=== PATIENT | male | born 1940 | race Caucasian/White ===

== ENCOUNTER 2017-03-14 14:04 | Day surgery (SDC) | payer OTHER ==
[~2017-03-14] VITALS: Ht 172.7 cm; Wt 73.0 kg
[~2017-03-14 14:04] MED LIST: ASPIR 8181 M1 PO; ASPIR-TRIN325 M1 PO; BENICAR20 MG PO; CRESTOR40 MG PO; DIOVAN160 MG PO; DIOVAN80 MG PO; ELIQUIS5 MG PO; HUMALOG100 UNIT/1 SQ; LANTUS (UNITS)1 UNIT SQ; LANTUS 3 M100 UNITS1 SC; LIPITOR80 MG PO; METOPROLOL SUCC25 MG PO; MULTIVITAMIN1 EAC1 PO; PRILOSEC40 MG PO; SENSIPAR30 MG PO; TEKTURNA150 MG PO; TRAVOPROST 0.02.5 ML BOTH EYES; ULTRAM50 MG PO; VITAMIN D31000 UNIT PO; ZEMPLAR1 MCG PO; ZETIA10 MG PO
[2017-03-14 14:48] LABS: POINT-OF-CARE METER ID UU13113696
[2017-03-14 15:56] LABS: POINT-OF-CARE METER ID UU13113819
== END 2017-03-14 16:48 | disposition home or self-care (01) ==
LOC: CATH 14:04
PROVIDERS: Internal Medicine Cardiovascular Disease
PROC: 0JH602Z Insertion of Monitoring Device into Chest Subcutaneous Tissue and Fascia, Open Approach (ICD-10-PCS; principal; 2017-03-14)
DX: I44.1 Atrioventricular block, second degree (principal); I45.3 Trifascicular block; I25.10 Atherosclerotic heart disease of native coronary artery without angina pectoris; E78.5 Hyperlipidemia, unspecified; I48.91 Unspecified atrial fibrillation; Z95.1 Presence of aortocoronary bypass graft; G47.30 Sleep apnea, unspecified; E11.22 Type 2 diabetes mellitus with diabetic chronic kidney disease; N18.2 Chronic kidney disease, stage 2 (mild); I12.9 Hypertensive chronic kidney disease with stage 1 through stage 4 chronic kidney disease, or unspecified chronic kidney disease; Z79.82 Long term (current) use of aspirin; Z79.01 Long term (current) use of anticoagulants; Z79.4 Long term (current) use of insulin; Z87.891 Personal history of nicotine dependence
CPT/HCPCS: 82948; C1764; C1894; J0690; J1200; J1815; J2250; J3010; S0020

== ENCOUNTER 2017-06-14 22:28 | Emergency (ER) | payer OTHER ==
[~2017-06-14] VITALS: Ht 172.7 cm; Wt 79.2 kg
[2017-06-14 22:54] LABS: POINT-OF-CARE METER ID UU14100415
[2017-06-14 23:26] LABS: EOSINOPHIL (%) 1.2 % (0-5); EOSINOPHIL COUNT 0.1 K/uL (0-0.3); HEMATOCRIT 40.2 % (38.0-50.0); IMMATURE GRANULOCYTE (%) 0.4 % (0.0-0.7); IMMATURE GRANULOCYTE COUNT 0.1 K/uL; INSTRUMENT ABS NEUTROPHIL CT 9.6 K/uL; LYMPHOCYTE COUNT 1.3 K/uL (1.0-2.8); MCH 29.3 PG (29.0-34.0); MCHC 32.8 G/DL (30.0-36.0); MCV 89.1 FL (86-99); MEAN PLAT.VOLUME 11.9 uM^3 (9.0-12.4); MONOCYTE (%) 5.6 % (3-12); MONOCYTE COUNT 0.7 K/uL (0-0.8); NEUTROPHIL (%) 81.6 % (45-76); NEUTROPHIL COUNT 9.6 K/uL (1.8-6.4); PLATELET COUNT 131 K/uL (156-360); RBC DIS.WIDTH-CV 12.1 % (11.8-14.6); RBC DIS.WIDTH-SD 39.6 % (39-53); RED BLOOD COUNT 4.51 M/uL (4.00-5.50); WHITE BLOOD COUNT 11.8 K/uL (4.1-10.2)
[2017-06-14 23:37] LABS: CHLORIDE 108 mEq/L (99-109); POTASSIUM 3.7 mEq/L (3.7-5.4); SODIUM 145 mEq/L (136-147)
[2017-06-14 23:38] LABS: GLUCOSE 101 mg/dL (70-99)
[2017-06-14 23:40] LABS: ANION GAP 11 MEQ/L (2-14)
[2017-06-14 23:40] LABS: POINT-OF-CARE METER ID UU14100415
[2017-06-14 23:41] LABS: SERUM ETHYL ALCOHOL < 10 mg/dL
[2017-06-14 23:42] LABS: GFR ESTIMATE (CALCULATED) > 59 mL/min/
[2017-06-14 23:43] LABS: UREA NITROGEN (BUN) 23 mg/dL (9-23)
[2017-06-14 23:46] LABS: TROP-I INTERPRETATION NEGATIVE; TROPONIN-I < 0.01 ng/mL (0.0-0.30)
[2017-06-15 01:29] LABS: POINT-OF-CARE METER ID UU14100415
[2017-06-15 01:54] VITALS: BP 130/65
== END 2017-06-15 02:15 | disposition home or self-care (01) ==
LOC: EME → EDBD 22:28 → EME 22:28
PROVIDERS: Emergency Medicine
DX: E11.649 Type 2 diabetes mellitus with hypoglycemia without coma (principal); Z79.4 Long term (current) use of insulin; I45.10 Unspecified right bundle-branch block; I10 Essential (primary) hypertension; E78.5 Hyperlipidemia, unspecified; I48.91 Unspecified atrial fibrillation; Z95.1 Presence of aortocoronary bypass graft; Z79.01 Long term (current) use of anticoagulants; Z79.82 Long term (current) use of aspirin; Z87.891 Personal history of nicotine dependence
CPT/HCPCS: 80048; 82948; 84484; 85025; 93005; 99281; 99285; G0480

== ENCOUNTER 2017-07-28 20:54 | Emergency (ER) | payer OTHER ==
[~2017-07-28] VITALS: Ht 172.7 cm; Wt 78.6 kg
[2017-07-28 21:38] LABS: EOSINOPHIL (%) 2.8 % (0-5); EOSINOPHIL COUNT 0.2 K/uL (0-0.3); HEMATOCRIT 39.1 % (38.0-50.0); IMMATURE GRANULOCYTE (%) 0.2 % (0.0-0.7); INSTRUMENT ABS NEUTROPHIL CT 3.3 K/uL; LYMPHOCYTE COUNT 1.8 K/uL (1.0-2.8); MCH 29.4 PG (29.0-34.0); MCHC 32.7 G/DL (30.0-36.0); MCV 89.7 FL (86-99); MONOCYTE (%) 7.7 % (3-12); MONOCYTE COUNT 0.4 K/uL (0-0.8); NEUTROPHIL (%) 57.1 % (45-76); NEUTROPHIL COUNT 3.3 K/uL (1.8-6.4); PLATELET COUNT 127 K/uL (156-360); RBC DIS.WIDTH-CV 12.1 % (11.8-14.6); RBC DIS.WIDTH-SD 39.6 % (39-53); RED BLOOD COUNT 4.36 M/uL (4.00-5.50); WHITE BLOOD COUNT 5.7 K/uL (4.1-10.2)
[2017-07-28 21:46] LABS: CARBON DIOXIDE (BICARBONATE) 27.9 MEQ/L (20-31); CHLORIDE 101 mEq/L (99-109); POTASSIUM 5.7 mEq/L (3.7-5.4); SODIUM 133 mEq/L (136-147)
[2017-07-28 21:49] LABS: ANION GAP 12 MEQ/L (2-14)
[2017-07-28 21:52] LABS: ALKALINE PHOSPHATASE 108 IU/L (3-129); GFR ESTIMATE (CALCULATED) 52 mL/min/; TOTAL BILIRUBIN 0.6 mg/dL (0.0-1.0)
[2017-07-28 21:53] LABS: DIRECT BILIRUBIN 0.3 mg/dL (0.0-0.3); UREA NITROGEN (BUN) 23 mg/dL (9-23)
[2017-07-28 21:55] LABS: LIPASE 16 U/L (1.0-51.0)
[2017-07-28 21:59] LABS: GLUCOSE 669 mg/dL (70-99)
[2017-07-28 22:33] LABS: ADD MIUA? YES; BILIRUBIN NEGATIVE; BLOOD NEGATIVE; GLUCOSE (STRIP) >=500; KETONES 5; LEUKOCYTES NEGATIVE; NITRITE NEGATIVE; PROTEIN (STRIP) NEGATIVE; SPECIFIC GRAVITY 1.024 (1.000-1.030); UROBILINOGEN 0.2 MG/DL (0.2-1.0)
[2017-07-28 22:35] LABS: BACTERIA NONE SEEN /HPF; EPITHELIAL CELLS NONE SEEN /HPF; MUCUS NONE SEEN /LPF; RED BLOOD CELLS 0-5 /HPF (0-5); UCUL ADDED? NO; WHITE BLOOD CELLS 0-5 /HPF (0-5)
[2017-07-28 22:37] LABS: COLOR YELLOW ((YELLOW))
[2017-07-28 23:34] LABS: POINT-OF-CARE METER ID UU13113747
[2017-07-28 23:36] LABS: AMPHETAMINE NEGATIVE (500 ng/mL); BARBITURATES NEGATIVE (200 ng/mL); BENZODIAZEPINES NEGATIVE (150 ng/mL); COCAINE NEGATIVE (150 ng/mL); INTERNAL CONTROLS VALID? YES; METHADONE NEGATIVE (200 ng/mL); METHAMPHETAMINE NEGATIVE (500 ng/mL); OPIATES (MORPHINE) NEGATIVE (100 ng/mL); OXYCODONE NEGATIVE (100 ng/mL); PHENCYCLIDINE NEGATIVE (25 ng/mL); PROPOXYPHENE NEGATIVE (300 ng/mL); THC CANNABINOIDS NEGATIVE (50 ng/mL); TRICYCLIC ANTIDEPRESSANTS NEGATIVE (300 ng/mL)
[2017-07-29 00:07] LABS: POINT-OF-CARE METER ID UU13113747
[2017-07-29 00:30] VITALS: BP 122/56
[2017-07-30 20:47] LABS: POINT-OF-CARE METER ID UU13113778
== END 2017-07-29 00:31 | disposition home or self-care (01) ==
LOC: EME 20:54
PROVIDERS: Emergency Medicine
DX: E11.65 Type 2 diabetes mellitus with hyperglycemia (principal); Z79.4 Long term (current) use of insulin; I10 Essential (primary) hypertension; I48.91 Unspecified atrial fibrillation; Z79.01 Long term (current) use of anticoagulants; E78.5 Hyperlipidemia, unspecified; K21.9 Gastro-esophageal reflux disease without esophagitis; Z95.1 Presence of aortocoronary bypass graft; Z87.891 Personal history of nicotine dependence
CPT/HCPCS: 80048; 80076; 81003; 82803; 82948; 83690; 85025; 93005; 99281; 99285; J7030

== ENCOUNTER 2017-10-23 11:19 | Emergency (ER) | payer OTHER ==
[~2017-10-23] VITALS: Ht 170.2 cm; Wt 77.7 kg
[2017-10-23 11:37] LABS: POINT-OF-CARE METER ID UU13113778
[2017-10-23 12:12] LABS: HEMATOCRIT 41.1 % (38.0-50.0); MCH 29.5 PG (29.0-34.0); MCHC 33.8 G/DL (30.0-36.0); MCV 87.3 FL (86-99); PLATELET COUNT 153 K/uL (156-360); RBC DIS.WIDTH-CV 12.4 % (11.8-14.6); RBC DIS.WIDTH-SD 39.7 % (39-53); RED BLOOD COUNT 4.71 M/uL (4.00-5.50)
[2017-10-23 12:28] LABS: CHLORIDE 106 mEq/L (99-109); POTASSIUM 4.2 mEq/L (3.7-5.4); SODIUM 141 mEq/L (136-147)
[2017-10-23 12:30] LABS: GLUCOSE 100 mg/dL (70-99)
[2017-10-23 12:31] LABS: ANION GAP 9 MEQ/L (2-14)
[2017-10-23 12:32] LABS: TOTAL BILIRUBIN 0.7 mg/dL (0.0-1.0)
[2017-10-23 12:33] LABS: ALKALINE PHOSPHATASE 108 IU/L (3-129)
[2017-10-23 12:34] LABS: GFR ESTIMATE (CALCULATED) > 59 mL/min/ (58.99-99999)
[2017-10-23 12:35] LABS: UREA NITROGEN (BUN) 24 mg/dL (9-23)
[2017-10-23 13:23] LABS: LIPASE 11 U/L (1.0-51.0)
[2017-10-23 13:52] LABS: ADD MIUA? YES; BILIRUBIN NEGATIVE; BLOOD NEGATIVE; COLOR YELLOW ((YELLOW)); GLUCOSE (STRIP) NEGATIVE; KETONES 5; LEUKOCYTES NEGATIVE; NITRITE NEGATIVE; PROTEIN (STRIP) 100; SPECIFIC GRAVITY 1.023 (1.000-1.030)
[2017-10-23 13:58] LABS: BACTERIA NONE SEEN /HPF; EPITHELIAL CELLS NONE SEEN /HPF; MUCUS TRACE /LPF; RED BLOOD CELLS NONE SEEN /HPF (0-5); UCUL ADDED? NO; WHITE BLOOD CELLS 0-5 /HPF (0-5)
[2017-10-23 15:28] VITALS: BP 120/67
== END 2017-10-23 15:29 | disposition home or self-care (01) ==
LOC: EME 11:19
DX: K59.00 Constipation, unspecified (principal); K76.0 Fatty (change of) liver, not elsewhere classified; E11.9 Type 2 diabetes mellitus without complications; N40.0 Benign prostatic hyperplasia without lower urinary tract symptoms; E78.5 Hyperlipidemia, unspecified; Z79.4 Long term (current) use of insulin; Z95.1 Presence of aortocoronary bypass graft; Z87.891 Personal history of nicotine dependence
CPT/HCPCS: 74177; 80053; 81003; 82948; 83690; 85027; 99281; 99285; J7030

== ENCOUNTER 2018-03-02 22:03 | Observation (INO) | payer OTHER ==
[~2018-03-02] VITALS: Ht 172.7 cm; Wt 78.3 kg
[~2018-03-02 22:03] MED LIST changes: +DAILY VALUE1 EACH PO; -DIOVAN80 MG PO; -MULTIVITAMIN1 EAC1 PO; +OMEPRAZOLE40 M1 PO; -PRILOSEC40 MG PO
[2018-03-02 22:56] LABS: BASOPHIL (%) 0.3 % (0-1); EOSINOPHIL (%) 1.2 % (0-5); EOSINOPHIL COUNT 0.1 K/uL (0-0.3); HEMATOCRIT 36.5 % (38.0-50.0); HEMOGLOBIN 12.2 G/DL (12.5-16.6); IMMATURE GRANULOCYTE (%) 0.3 % (0.0-0.7); LYMPHOCYTE (%) 28.7 % (15-42); LYMPHOCYTE COUNT 2.5 K/uL (1.0-2.8); MCH 29.8 PG (29.0-34.0); MCHC 33.4 G/DL (30.0-36.0); MONOCYTE (%) 7.4 % (3-12); MONOCYTE COUNT 0.7 K/uL (0-0.8); NEUTROPHIL (%) 62.1 % (45-76); NEUTROPHIL COUNT 5.5 K/uL (1.8-6.4); PLATELET COUNT 155 K/uL (156-360); RBC DIS.WIDTH-CV 13.1 % (11.8-14.6); RBC DIS.WIDTH-SD 42.8 % (39-53); WHITE BLOOD COUNT 8.9 K/uL (4.1-10.2)
[2018-03-02 22:58] LABS: INTER. NORMALIZED RATIO 1.2
[2018-03-02 23:01] LABS: AMYLASE 63 IU/L (1-118)
[2018-03-02 23:03] LABS: CHLORIDE 108 mEq/L (99-109); POTASSIUM 4.8 mEq/L (3.7-5.4); SODIUM 143 mEq/L (136-147)
[2018-03-02 23:05] LABS: GLUCOSE 110 mg/dL (70-99); TOTAL PROTEIN 6.5 g/dL (6.4-8.3)
[2018-03-02 23:07] LABS: SERUM ETHYL ALCOHOL < 10 mg/dL; TOTAL BILIRUBIN 0.4 mg/dL (0.0-1.0)
[2018-03-02 23:09] LABS: ALKALINE PHOSPHATASE 92 IU/L (3-129); CREATININE 1.6 mg/dL (0.6-1.3); GFR ESTIMATE (CALCULATED) 45 mL/min/ (58.99-99999)
[2018-03-02 23:10] LABS: LIPASE 15 U/L (1.0-51.0); UREA NITROGEN (BUN) 35 mg/dL (9-23)
[2018-03-02 23:11] LABS: AST (GOT) 27 IU/L (2-34)
[2018-03-02 23:12] LABS: ALT (GPT) 24 IU/L (3-49)
[2018-03-02 23:14] LABS: TROP-I INTERPRETATION POSITIVE
[2018-03-02 23:16] LABS: TROPONIN-I 1.18 ng/mL (0.0-0.30)
[2018-03-03 03:36] LABS: HDL CHOLESTEROL 48 MG/DL (Desirable>=40); LDL CHOLESTEROL 67 mg/dL (Desirable<100); NON-HDL CHOLESTEROL 88 mg/dL (Desirable<160); TOTAL CHOLESTEROL 136 mg/dL (Desirable<200); TRIGLYCERIDES 105 MG/DL (Normal: <150)
[2018-03-03 04:39] LABS: APPEARANCE CLEAR ((CLEAR)); BILIRUBIN NEGATIVE; BLOOD NEGATIVE; COLOR YELLOW ((YELLOW)); GLUCOSE (STRIP) 150; KETONES NEGATIVE; LEUKOCYTES NEGATIVE; NITRITE NEGATIVE; PROTEIN (STRIP) 30; SPECIFIC GRAVITY 1.021 (1.000-1.030); UCUL ADDED? NO
[2018-03-03 05:30] LABS: AMPHETAMINE NEGATIVE (500 ng/mL); BARBITURATES NEGATIVE (200 ng/mL); BENZODIAZEPINES NEGATIVE (150 ng/mL); BUPRENORPHINE NEGATIVE (10 ng/mL); COCAINE NEGATIVE (150 ng/mL); METHADONE NEGATIVE (200 ng/mL); METHAMPHETAMINE NEGATIVE (500 ng/mL); OPIATES (MORPHINE) NEGATIVE (100 ng/mL); OXYCODONE NEGATIVE (100 ng/mL); PHENCYCLIDINE NEGATIVE (25 ng/mL); PROPOXYPHENE NEGATIVE (300 ng/mL); THC CANNABINOIDS NEGATIVE (50 ng/mL); TRICYCLIC ANTIDEPRESSANTS NEGATIVE (300 ng/mL)
[2018-03-03 05:57] LABS: TROP-I INTERPRETATION POSITIVE
[2018-03-03 05:58] LABS: TROPONIN-I 0.73 ng/mL (0.0-0.30)
[2018-03-03 06:00] VITALS: BP 146/66
[2018-03-03 09:00] VITALS: BP 162/67
[2018-03-03 09:22] LABS: HEMOGLOBIN A1c (GLYCOHEMOGLOB) 8.8 % (Below 5.7)
[2018-03-03 12:00] VITALS: BP 167/69
[2018-03-03 13:53] LABS: TROP-I INTERPRETATION INDETERMINATE
[2018-03-03 15:26] LABS: CHLORIDE 103 MEQ/L (99-109); POTASSIUM 4.9 MEQ/L (3.7-5.4)
[2018-03-03 15:28] LABS: SODIUM 135 MEQ/L (136-147)
[2018-03-03 15:33] LABS: GFR ESTIMATE (CALCULATED) > 59 mL/min/ (58.99-99999); UREA NITROGEN (BUN) 25 mg/dL (9-23)
[2018-03-03 15:47] LABS: CREATININE 1.1 MG/DL (0.6-1.3); GLUCOSE 236 mg/dL (70-99)
== END 2018-03-03 17:19 | disposition home or self-care (01) ==
LOC: EME 22:03 → 4EAST 03-03 01:48 → EDOF 03-03 01:48 → 4EAST 03-03 01:48 → ENRESERV 03-03 01:59 → 4EAST 03-03 05:44
PROVIDERS: Emergency Medicine Emergency Medical Services; Hospitalist; Physician Assistant
DX: G45.9 Transient cerebral ischemic attack, unspecified (principal); N17.9 Acute kidney failure, unspecified; R74.8 Abnormal levels of other serum enzymes; I48.0 Paroxysmal atrial fibrillation; E11.649 Type 2 diabetes mellitus with hypoglycemia without coma; I25.10 Atherosclerotic heart disease of native coronary artery without angina pectoris; I44.1 Atrioventricular block, second degree; Z79.01 Long term (current) use of anticoagulants; Z87.891 Personal history of nicotine dependence; I10 Essential (primary) hypertension; E78.5 Hyperlipidemia, unspecified; Z79.82 Long term (current) use of aspirin; Z79.4 Long term (current) use of insulin; I35.2 Nonrheumatic aortic (valve) stenosis with insufficiency; Z95.1 Presence of aortocoronary bypass graft
CPT/HCPCS: 70450; 70551; 71045; 80048; 80053; 80061; 81003; 82150; 82948; 83036; 83690; 84484; 85025; 85610; 85730; 86850; 86900; 86901; 93005; 93880; 99281; 99285; G0378; G0480

== ENCOUNTER 2018-05-25 17:23 | Emergency (ER) | payer OTHER ==
[~2018-05-25] VITALS: Ht 172.7 cm; Wt 74.0 kg
[~2018-05-25 17:23] MED LIST changes: +CYANOCOBALAM1000 MCG PO; -DAILY VALUE1 EACH PO; -ELIQUIS5 MG PO; -HUMALOG100 UNIT/1 SQ; -OMEPRAZOLE40 M1 PO; -SENSIPAR30 MG PO; +VITAMIN D2000 UNI1 PO; -VITAMIN D31000 UNIT PO; -ZETIA10 MG PO
[2018-05-25 19:22] LABS: HEMATOCRIT 34.7 % (38.0-50.0); HEMOGLOBIN 11.6 G/DL (12.5-16.6); MCHC 33.4 G/DL (30.0-36.0); MCV 86.8 FL (86-99); PLATELET COUNT 134 K/uL (156-360); RBC DIS.WIDTH-CV 12.3 % (11.8-14.6); RBC DIS.WIDTH-SD 39.1 % (39-53); WHITE BLOOD COUNT 11.5 K/uL (4.1-10.2)
[2018-05-25 19:39] LABS: CHLORIDE 107 mEq/L (99-109); POTASSIUM 5.3 mEq/L (3.7-5.4); SODIUM 140 mEq/L (136-147)
[2018-05-25 19:41] LABS: GLUCOSE 181 mg/dL (70-99)
[2018-05-25 19:45] LABS: CREATININE 1.4 mg/dL (0.6-1.3); GFR ESTIMATE (CALCULATED) 52 mL/min/ (58.99-99999)
[2018-05-25 19:46] LABS: UREA NITROGEN (BUN) 29 mg/dL (9-23)
[2018-05-25 20:24] LABS: CREATINE KINASE 90 IU/L (1-294)
[2018-05-25 21:12] VITALS: BP 122/78
[2018-05-26] MEDS ORDERED: NORCO 5/3251 TABLET PO (20:23)
[2018-05-26] MEDS ORDERED: KEFLEX500 MG PO (20:23)
== END 2018-05-25 21:13 | disposition home or self-care (01) ==
LOC: EME 17:23
PROVIDERS: Physician Assistant
DX: M79.605 Pain in left leg (principal); M79.604 Pain in right leg; M62.838 Other muscle spasm; E86.0 Dehydration; N17.9 Acute kidney failure, unspecified; E11.9 Type 2 diabetes mellitus without complications; E78.5 Hyperlipidemia, unspecified; Z79.4 Long term (current) use of insulin; Z79.82 Long term (current) use of aspirin; Z79.01 Long term (current) use of anticoagulants; Z87.891 Personal history of nicotine dependence; Z95.1 Presence of aortocoronary bypass graft
CPT/HCPCS: 80048; 82550; 85027; 93971; 99281; 99285; J3010; J7030

== ENCOUNTER 2018-05-26 15:09 | Emergency (ER) | payer OTHER ==
[~2018-05-26] VITALS: Ht 172.7 cm; Wt 75.6 kg
[2018-05-26 16:50] LABS: HEMATOCRIT 34.3 % (38.0-50.0); HEMOGLOBIN 11.4 G/DL (12.5-16.6); MCH 28.9 PG (29.0-34.0); MCHC 33.2 G/DL (30.0-36.0); MCV 87.1 FL (86-99); PLATELET COUNT 127 K/uL (156-360); RBC DIS.WIDTH-CV 12.2 % (11.8-14.6); RBC DIS.WIDTH-SD 39.2 % (39-53); RED BLOOD COUNT 3.94 M/uL (4.00-5.50); WHITE BLOOD COUNT 9.3 K/uL (4.1-10.2)
[2018-05-26 17:08] LABS: CHLORIDE 103 mEq/L (99-109); POTASSIUM 4.8 mEq/L (3.7-5.4); SODIUM 136 mEq/L (136-147)
[2018-05-26 17:09] LABS: GLUCOSE 156 mg/dL (70-99)
[2018-05-26 17:13] LABS: CREATININE 1.2 mg/dL (0.6-1.3); GFR ESTIMATE (CALCULATED) > 59 mL/min/ (58.99-99999)
[2018-05-26 17:14] LABS: UREA NITROGEN (BUN) 19 mg/dL (9-23)
[2018-05-26] MEDS ORDERED: NORCO 5/3251 TABLET PO (20:23)
[2018-05-26] MEDS ORDERED: KEFLEX500 MG PO (20:23)
[2018-05-26 21:36] VITALS: BP 165/77
[2018-05-27] MEDS ORDERED: PERCOCET 5/31 TABLET PO (13:18)
[2018-05-27] MEDS ORDERED: COLCHICINE0.6 M1 PO (13:18)
== END 2018-05-26 21:43 | disposition home or self-care (01) ==
LOC: EME 15:09
PROVIDERS: Physician Assistant
DX: M79.661 Pain in right lower leg (principal); L03.115 Cellulitis of right lower limb; R60.0 Localized edema; I70.201 Unspecified atherosclerosis of native arteries of extremities, right leg; I10 Essential (primary) hypertension; E78.5 Hyperlipidemia, unspecified; E11.9 Type 2 diabetes mellitus without complications; Z79.4 Long term (current) use of insulin; Z95.1 Presence of aortocoronary bypass graft; Z79.01 Long term (current) use of anticoagulants; Z79.82 Long term (current) use of aspirin; Z87.891 Personal history of nicotine dependence
CPT/HCPCS: 73701; 80048; 83605; 85027; 99281; 99285; J0696; J2405; J3010; J7040

== ENCOUNTER 2018-05-27 09:32 | Emergency (ER) | payer OTHER ==
[~2018-05-27] VITALS: Ht 172.7 cm; Wt 71.0 kg
[~2018-05-27 09:32] MED LIST changes: +KEFLEX500 MG PO; +NORCO 5/3251 TABLET PO
[2018-05-27 12:17] LABS: HEMATOCRIT 37.8 % (38.0-50.0); HEMOGLOBIN 12.7 G/DL (12.5-16.6); MCH 29.3 PG (29.0-34.0); MCHC 33.6 G/DL (30.0-36.0); MCV 87.1 FL (86-99); PLATELET COUNT 120 K/uL (156-360); RBC DIS.WIDTH-SD 38.5 % (39-53); RED BLOOD COUNT 4.34 M/uL (4.00-5.50); WHITE BLOOD COUNT 9.9 K/uL (4.1-10.2)
[2018-05-27] MEDS ORDERED: PERCOCET 5/31 TABLET PO (13:18)
[2018-05-27] MEDS ORDERED: COLCHICINE0.6 M1 PO (13:18)
[2018-05-27 13:45] VITALS: BP 115/50
== END 2018-05-27 14:10 | disposition home or self-care (01) ==
LOC: EME 09:32
PROVIDERS: Physician Assistant
DX: M10.9 Gout, unspecified (principal); E11.9 Type 2 diabetes mellitus without complications; E78.5 Hyperlipidemia, unspecified; Z79.4 Long term (current) use of insulin; Z95.1 Presence of aortocoronary bypass graft; Z87.891 Personal history of nicotine dependence
CPT/HCPCS: 82948; 85027; 86140; 99281; 99285; J1815

== ENCOUNTER 2018-05-28 20:21 | Inpatient (IN) | payer OTHER ==
[~2018-05-28] VITALS: Ht 172.7 cm; Wt 75.9 kg
[~2018-05-28 20:21] MED LIST changes: +COLCHICINE0.6 M1 PO; +PERCOCET 5/31 TABLET PO
[2018-05-28 21:52] LABS: BASOPHIL (%) 0.3 % (0-1); EOSINOPHIL (%) 1.4 % (0-5); EOSINOPHIL COUNT 0.1 K/uL (0-0.3); HEMATOCRIT 33.8 % (38.0-50.0); HEMOGLOBIN 11.5 G/DL (12.5-16.6); IMMATURE GRANULOCYTE (%) 0.3 % (0.0-0.7); LYMPHOCYTE (%) 17.1 % (15-42); LYMPHOCYTE COUNT 1.2 K/uL (1.0-2.8); MCH 29.3 PG (29.0-34.0); MCV 86.2 FL (86-99); MONOCYTE (%) 9.5 % (3-12); MONOCYTE COUNT 0.7 K/uL (0-0.8); NEUTROPHIL (%) 71.4 % (45-76); NEUTROPHIL COUNT 5.1 K/uL (1.8-6.4); PLATELET COUNT 129 K/uL (156-360); RBC DIS.WIDTH-SD 37.9 % (39-53); RED BLOOD COUNT 3.92 M/uL (4.00-5.50); WHITE BLOOD COUNT 7.2 K/uL (4.1-10.2)
[2018-05-28 22:12] LABS: ALBUMIN 3.7 g/dL (3.2-4.8)
[2018-05-28 22:16] LABS: TOTAL BILIRUBIN 0.8 mg/dL (0.0-1.0); TOTAL PROTEIN 6.8 g/dL (6.4-8.3)
[2018-05-28 22:18] LABS: ALKALINE PHOSPHATASE 81 IU/L (3-129)
[2018-05-28 22:20] LABS: AST (GOT) 18 IU/L (2-34); DIRECT BILIRUBIN 0.4 mg/dL (0.0-0.3)
[2018-05-28 22:21] LABS: ALT (GPT) 17 IU/L (3-49); URIC ACID 6.2 mg/dL (3.1-9.2)
[2018-05-28 23:08] LABS: CREATINE KINASE 48 IU/L (1-294)
[2018-05-28 23:35] LABS: CHLORIDE 100 MEQ/L (99-109); CREATININE 1.3 MG/DL (0.6-1.3); GFR ESTIMATE (CALCULATED) 57 mL/min/ (58.99-99999); GLUCOSE 166 mg/dL (70-99); SODIUM 136 MEQ/L (136-147); UREA NITROGEN (BUN) 15 mg/dL (9-23)
[2018-05-29 00:28] LABS: ERTH.SED.RATE 52 MM/HR (0-20)
[2018-05-29] MEDS ORDERED: LEXAPRO10 MG PO (01:04)
[2018-05-29] MEDS ORDERED: BASAGLAR K100 UNIT/1 SC (01:04)
[2018-05-29] MEDS ORDERED: TRULICITY1.5 MG/0.5 SC (01:07)
[2018-05-29] MEDS ORDERED: ZANTAC150 MG PO (01:08)
[2018-05-29] MEDS ORDERED: GLUCOTROL5 MG PO ×2 (01:10→01:11)
[2018-05-29] MEDS ORDERED: ULTRAM50 MG PO (01:11)
[2018-05-29 03:27] VITALS: BP 151/66
[2018-05-29 04:59] VITALS: BP 140/64
[2018-05-29 05:46] LABS: BASOPHIL (%) 0.4 % (0-1); EOSINOPHIL (%) 2.4 % (0-5); EOSINOPHIL COUNT 0.2 K/uL (0-0.3); HEMATOCRIT 32.4 % (38.0-50.0); HEMOGLOBIN 10.8 G/DL (12.5-16.6); IMMATURE GRANULOCYTE (%) 0.3 % (0.0-0.7); LYMPHOCYTE (%) 16.3 % (15-42); LYMPHOCYTE COUNT 1.2 K/uL (1.0-2.8); MCH 28.5 PG (29.0-34.0); MCHC 33.3 G/DL (30.0-36.0); MCV 85.5 FL (86-99); MONOCYTE (%) 10.3 % (3-12); MONOCYTE COUNT 0.8 K/uL (0-0.8); NEUTROPHIL (%) 70.3 % (45-76); NEUTROPHIL COUNT 5.3 K/uL (1.8-6.4); PLATELET COUNT 121 K/uL (156-360); RBC DIS.WIDTH-CV 12.2 % (11.8-14.6); RBC DIS.WIDTH-SD 37.7 % (39-53); RED BLOOD COUNT 3.79 M/uL (4.00-5.50); WHITE BLOOD COUNT 7.6 K/uL (4.1-10.2)
[2018-05-29 06:18] LABS: CHLORIDE 102 MEQ/L (99-109); CREATININE 1.1 MG/DL (0.6-1.3); GFR ESTIMATE (CALCULATED) > 59 mL/min/ (58.99-99999); GLUCOSE 209 mg/dL (70-99); SODIUM 137 MEQ/L (136-147); UREA NITROGEN (BUN) 15 mg/dL (9-23)
[2018-05-29 07:15] VITALS: BP 131/61
[2018-05-29 10:46] LABS: LYME DISEASE SEROLOGY SCREEN NEGATIVE (NEGATIVE)
[2018-05-29 11:19] VITALS: BP 150/67
[2018-05-29 15:16] VITALS: BP 108/51
[2018-05-29] MEDS ORDERED: OMEPRAZOLE40 M1 PO (17:25)
[2018-05-29] MEDS ORDERED: ZETIA10 MG PO (17:25)
[2018-05-29] MEDS ORDERED: HUMALOG100 UNIT/1 SQ (17:26)
[2018-05-29] MEDS ORDERED: DIOVAN160 MG PO (17:26)
[2018-05-29] MEDS ORDERED: SENSIPAR30 MG PO (17:26)
[2018-05-29] MEDS ORDERED: ELIQUIS5 MG PO (17:26)
[2018-05-29] MEDS ORDERED: DIOVAN80 MG PO (17:30)
[2018-05-29] MEDS ORDERED: TRESIBA FL100 UNIT/1 SC (17:33)
[2018-05-29] MEDS ORDERED: CEPHALEXIN500 MG PO (17:36)
[2018-05-29] MEDS ORDERED: ENDOCET 5-3251 EACH PO (17:36)
[2018-05-29 20:30] VITALS: BP 126/60
[2018-05-30] VITALS: BP 151/66
[2018-05-30 08:40] VITALS: BP 180/77
[2018-05-30 10:23] LABS: HEMOGLOBIN A1c (GLYCOHEMOGLOB) 8.4 % (Below 5.7)
[2018-05-30 11:11] VITALS: BP 113/55
[2018-05-30 15:17] VITALS: BP 104/51
[2018-05-30 20:00] VITALS: BP 113/55
[2018-05-30 23:53] VITALS: BP 146/70
[2018-05-31 03:57] VITALS: BP 172/72
[2018-05-31 05:20] LABS: HEMATOCRIT 28.8 % (38.0-50.0); HEMOGLOBIN 9.5 G/DL (12.5-16.6); MCH 28.4 PG (29.0-34.0); MCV 86.2 FL (86-99); PLATELET COUNT 121 K/uL (156-360); RBC DIS.WIDTH-CV 12.2 % (11.8-14.6); RBC DIS.WIDTH-SD 38.1 % (39-53); RED BLOOD COUNT 3.34 M/uL (4.00-5.50); WHITE BLOOD COUNT 7.7 K/uL (4.1-10.2)
[2018-05-31 05:44] LABS: CHLORIDE 103 MEQ/L (99-109); CREATININE 1.2 MG/DL (0.6-1.3); GFR ESTIMATE (CALCULATED) > 59 mL/min/ (58.99-99999); GLUCOSE 201 mg/dL (70-99); POTASSIUM 4.5 MEQ/L (3.7-5.4); SODIUM 136 MEQ/L (136-147); UREA NITROGEN (BUN) 20 mg/dL (9-23)
[2018-05-31 07:29] VITALS: BP 178/72
[2018-05-31 12:12] VITALS: BP 123/57
[2018-05-31 14:58] VITALS: BP 119/58
[2018-05-31 20:34] VITALS: BP 154/67
[2018-05-31 23:42] VITALS: BP 146/67
[2018-06-01 07:28] VITALS: BP 175/74
[2018-06-01] MEDS ORDERED: KEFLEX500 MG PO (08:23)
[2018-06-01] MEDS ORDERED: GABAPENTIN100 MG PO (08:23)
[2018-06-01 12:07] VITALS: BP 163/72
[2018-06-01 12:22] LABS: HEMATOCRIT 33.1 % (38.0-50.0); HEMOGLOBIN 10.8 G/DL (12.5-16.6); MCH 28.1 PG (29.0-34.0); MCHC 32.6 G/DL (30.0-36.0); PLATELET COUNT 151 K/uL (156-360); RBC DIS.WIDTH-SD 37.5 % (39-53); RED BLOOD COUNT 3.85 M/uL (4.00-5.50); WHITE BLOOD COUNT 7.4 K/uL (4.1-10.2)
[2018-06-01 12:26] LABS: CHLORIDE 101 MEQ/L (99-109); GFR ESTIMATE (CALCULATED) > 59 mL/min/ (58.99-99999); POTASSIUM 5.2 MEQ/L (3.7-5.4); SODIUM 136 MEQ/L (136-147); UREA NITROGEN (BUN) 16 mg/dL (9-23)
[2018-06-01 12:28] LABS: GLUCOSE 314 mg/dL (70-99)
[2018-06-01] MEDS ORDERED: NORCO 5/3251 TABLET PO (13:22)
== END 2018-06-01 14:14 | DRG 603 ==
LOC: EME 20:21 → EXP 20:21 → 4SOUTH 05-29 00:57 → EDOF 05-29 00:57 → ENRESERV 05-29 01:06 → 4SOUTH 05-29 02:06 → CANRESERV 05-29 02:10 → ENRESERV 05-29 02:10 → 4SOUTH 06-01 14:14
PROVIDERS: Hospitalist; Internal Medicine; Physician Assistant
DX: L03.115 Cellulitis of right lower limb (principal); I48.2 Chronic atrial fibrillation; I25.10 Atherosclerotic heart disease of native coronary artery without angina pectoris; Z95.1 Presence of aortocoronary bypass graft; E11.42 Type 2 diabetes mellitus with diabetic polyneuropathy; E11.649 Type 2 diabetes mellitus with hypoglycemia without coma; E11.51 Type 2 diabetes mellitus with diabetic peripheral angiopathy without gangrene; Z79.4 Long term (current) use of insulin; M19.90 Unspecified osteoarthritis, unspecified site; Z79.01 Long term (current) use of anticoagulants; Z79.82 Long term (current) use of aspirin; M60.9 Myositis, unspecified
CPT/HCPCS: 71046; 73701; 73720; 80048; 80076; 80202; 82550; 82948; 83036; 83605; 84550; 85025; 85027; 85651; 86618; 87040; 87086; 99281; 99284; 99285; J0295; J0692; J0696; J1815; J2405; J2543; J3010; J3370; J7040; J7050